=== PATIENT | female | born 1955 | race Caucasian/White ===

== ENCOUNTER → 2016-10-20 | Outpatient (CLI) | payer OTHER, BC ==
[~2016-10-20] MED LIST: ATOR10TA82 PO; CIPR1TAB10 PO; CLR10 PO; DTR/5 PO; ESCI10TA17 PO; IBUP-1050 PO; MRP1 PO; OXYC-57 PO; PHEN-876 PO; TAMS0.4C38 PO
--- NOTE | 2016-10-20 14:11 | DIAGNOSTIC IMAGING REPORT ---
IVP W/OR W/O TOMOGRAMS CLINICAL HISTORY: N13.30 Hydronephrosis of left kidney latex allergy, no iodine COMPARISON STUDY: KUB 04/30/2016. Outside hospital abdomen and pelvis CT 04/29/2016. FINDINGS: [facility] images show no renal or ureteral calculi. Calcifications in the deep pelvis remain unchanged and likely represent phleboliths. Dextroscoliosis of the lumbar spine. There is a right total hip arthroplasty. Moderate well-formed stool seen within the colon. Following the intravenous administration of contrast there is prompt and symmetric perfusion of the kidneys. The kidneys are normal in size. No hydronephrosis. No suspicious filling defects seen within the opacified bilateral renal collecting systems are ureters. The bladder is unremarkable. Small post void residual. IMPRESSION: 1. No renal or ureteral calculi. 2. No hydronephrosis. 3. No suspicious filling defects seen within the opacified renal collecting systems, ureters, or bladder. 4. Small postvoid residual. Electronically signed by: Yung Hamilton M.D. 10/20/2016 2:09 PM Dictated Date/Time: 10/20/2016 2:05 PM
== END | disposition home or self-care (01) ==
LOC: C.RAD 12:28
PROVIDERS: ATTEND Urology
DX: N13.30 Unspecified hydronephrosis (principal)

== ENCOUNTER → 2017-02-09 | Outpatient (CLI) | payer OTHER, BC ==
[~2017-02-09] MED LIST changes: -ATOR10TA82 PO; +ATOR10TA88 PO; -CIPR1TAB10 PO; -DTR/5 PO; +OPTIRAY 300 IV PRN; +OXYB5TAB74 PO; -OXYC-57 PO
--- NOTE | 2017-02-09 14:20 | DIAGNOSTIC IMAGING REPORT ---
IV PYELOGRAM CLINICAL HISTORY: 62-year-old female with history of left hydronephrosis. COMPARISON: 10/20/2016. TECHNIQUE: An abdominal scalp treatment operator radiograph is performed. IVP pyelogram was then performed following the IV administration of 100 mL of Optiray 300, tomographic images are acquired in the corticomedullary and excretory phases of enhancement. Overhead views of the renal collecting system and bladder were obtained in multiple obliquities both pre and post void. FINDINGS: Initial scalp treatment operator abdominal radiograph demonstrates nonobstructive bowel gas pattern. Multilevel degenerative changes of the lumbar spine with dextrocurvature centered at L2-3. Total right hip arthroplasty. No calcifications project over the kidneys allowing for the presence of bowel gas and stool. After intravenous contrast administration, normal excretion on the bilateral kidneys. The renal collecting systems are nondilated. No focal filling defect within the collecting systems or ureters. No evidence of blunting of the renal calyces. Normal bladder filling. No gross filling defect within the bladder. Small post void residual volume likely within the range of normal. IMPRESSION: 1. No radiographic evidence of nephrolithiasis. No hydronephrosis. Electronically signed by: Luis Min M.D. 02/09/2017 2:18 PM Dictated Date/Time: 02/09/2017 2:14 PM
== END | disposition home or self-care (01) ==
LOC: C.RAD 12:37
PROVIDERS: ATTEND Urology
DX: N13.30 Unspecified hydronephrosis (principal)

== ENCOUNTER → 2017-06-14 | Outpatient (CLI) | payer OTHER, BC ==
[~2017-06-14] MED LIST changes: +ATOR10TA82 PO; -ATOR10TA88 PO; +DTR/5 PO; -OPTIRAY 300 IV PRN; -OXYB5TAB74 PO
--- NOTE | 2017-06-14 09:08 | DIAGNOSTIC IMAGING REPORT ---
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 Cortical medullary differentiation is within normal limits. Note is made of mildly increased echogenicity of the liver, suspicious for fatty infiltration. Left kidney measures 11.3 x 5.3 x 4.8 cm and is somewhat lobular which is within normal limits without renal calculi, hydronephrosis or focal mass. Cortical medullary differentiation preserved. Bilateral ureteral jets are noted. Urinary bladder is unremarkable. IMPRESSION: 1. Unremarkable sonographic appearance of the kidneys without renal calculi or hydronephrosis. 2. Urinary bladder is within normal limits. The above report was generated using voice recognition software. It may contain grammatical, syntax or spelling errors. Electronically signed by: Vernon Parikh M.D. 06/14/2017 9:06 AM Dictated Date/Time: 06/14/2017 9:03 AM
== END | disposition home or self-care (01) ==
LOC: C.ULTR 08:39
PROVIDERS: ATTEND Urology
DX: E85.4 Organ-limited amyloidosis (principal)